=== PATIENT | male | born 1945 | race American Indian/Alaskan Native ===

== ENCOUNTER 2017-03-17 05:41 | Observation (INO) | payer BC, OTHER ==
[2017-03-17 05:53] VITALS: BMI 28.0
[2017-03-17] MEDS ORDERED: Sodium Chloride 0.9% 1,000 ML IV STA (06:16)
--- NOTE | 2017-03-17 06:28 | ED PDOC ---
Upper Extremity Pain/Injury Time Seen by Provider: 03/17/17 05:54 Chief Complaint (Nursing): Upper Extremity Problem/Injury History Per: Patient History/Exam Limitations: no limitations Onset/Duration Of Symptoms: Days, Persistent Current Symptoms Are (Timing): Still Present Quality: Sharp Severity: Severe Pain Scale Rating Of: 10 Exacerbating Factor(s): Movement Additional Complaint(s): 71 y/o man w/ pmh of HTN presents with right shoulder pain. Patient reports pain for at least 1 month, right shoulder, constant, worsened w/ movement and relieved by having right hand on the back of his head. Patient reports previous injections x2 to shoulder which the patient states provided no relief. The patient also reports XR of the shoulder about 2 weeks ago. Patient denies trauma or fall. 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 Patient denies headaches, chest pain, sOB, abdominal pain, nausea, vomiting, diarrhea, dysuria , or fever. allergies: NKDA PMD: Dr. Means ortho: Dr. Ritchie PMH: HTN PSHx: knee and wrist surgery, no adverse reactions to anesthesia FamHx: denies SOC: denies smoking, alcohol, or illegal drugs ROS: 12 points assessed and negative unless other schultz reported in HPI Past Medical History Vital Signs: Last Vital Signs Temp 98.0 F 03/17/17 05:51 Pulse 86 03/17/17 05:51 Resp 16 03/17/17 05:51 BP 139/76 03/17/17 05:51 Pulse Ox 99 03/17/17 05:51 - Medical History PMH: HTN - Surgical History Other surgeries: knee and wrist - Family History Family History: States: Unknown Family Hx - Allergies Allergies/Adverse Reactions: Allergies Allergy/AdvReac Type Severity Reaction Status Date / Time No Known Allergies Allergy Verified 03/17/17 05:50 Review of Systems ROS Statement: Except As Marked, All Systems Reviewed And Found Negative Constitutional: Negative for: Fever, Chills, Sweats Cardiovascular: Negative for: Chest Pain, Palpitations, Orthopnea, Paroxysmal Noc. Dyspnea, Edema Respiratory: Negative for: Cough, Shortness of Breath, SOB with Exertion, Pleuritic Pain, Wheezing Gastrointestinal: Negative for: Nausea, Vomiting, Abdominal Pain, Diarrhea Genitourinary Male: Negative for: Dysuria, Frequency, Hematuria Musculoskeletal: Positive for: Shoulder Pain. Negative for: Back Pain Skin: Negative for: Rash Neurological: Positive for: Weakness. Negative for: Numbness, Incoordination, Change in Speech, Confusion, Seizures, Altered Mental Status, Headache, Dizziness Physical Exam - Reviewed Nursing Documentation Reviewed: Yes Vital Signs Reviewed: Yes - Physical Exam Appears: Positive for: No Acute Distress Head Exam: Positive for: ATRAUMATIC, NORMAL INSPECTION, NORMOCEPHALIC Skin: Positive for: Normal Color, Warm, Dry Eye Exam: Positive for: Normal appearance ENT: Positive for: Normal ENT Inspection Neck: Positive for: Normal, Painless ROM, Supple Cardiovascular/Chest: Positive for: Regular Rate, Rhythm, Chest Non Tender. Negative for: Edema, JVD, Murmur, Bradycardia, Tachycardia, Irregularly Irregular Respiratory: Positive for: Normal Breath Sounds. Negative for: Decreased Breath Sounds, Accessory Muscle Use, Crackles Gastrointestinal/Abdominal: Positive for: Normal Exam, Bowel Sounds, Soft. Negative for: Tenderness, Mass, Distended, Rebound, Hernia Back: Positive for: Normal Inspection Extremity: Positive for: Tenderness, Capillary Refill, Other (right shoulder positive Speed's, Hawkin's, and Neer's tests). 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 Negative for: Motor/Sensory Deficits, Cerebellar Tests, Gait, Aphasia, Facial Droop - ECG O2 Sat by Pulse Oximetry: 99 - Progress ED Course And Treament: 71 y/o man w/ pmh of HTN presents with right shoulder pain. Most likely due to shoulder impingement vs. rotator cuff tear vs. labral tear CBC w/ diff CMP PT INR aPTT ABO-Rh EKG IVF NS @ 100 mL/Hr re-evaluate Medical Decision Making Medical Decision Makin71 y/o man w/ pmh of HTN presents with right shoulder pain. Most likely due to shoulder impingement vs. rotator cuff tear vs. labral tear CBC w/ diff CMP PT INR aPTT ABO-Rh EKG IVF NS @ 100 mL/Hr pending response from Dr. Ritchie's service re-evaluate Disposition - Clinical Impression Clinical Impression: Shoulder pain - Patient ED Disposition Is Patient to be Admitted: Transfer of Care Discussed With : Jayro Fraga Counseled Patient/Family Regarding: Studies Performed - Disposition Disposition: Transfer of Care Disposition Time: 06:40 Condition: STABLE Forms: [facility] ([place]) - POA Present On Arrival: None
[2017-03-17 07:12] LABS: EOS # 0.1 K/uL (0.0-0.7); EOS % 3.6 % (0.0-4.0); HEMATOCRIT 36.2 % (35.0-51.0); LYMPH # 1.3 K/uL (1.0-4.3); LYMPH % 41.2 % (20.0-40.0); MEAN CELL VOLUME 90.2 fl (80.0-94.0); MEAN CORPUSCULAR HEMOGLOBIN 30.4 pg (27.0-31.0); MEAN CORPUSCULAR HGB CONC 33.7 g/dL (33.0-37.0); MEAN PLATELET VOLUME 8.7 fl (7.2-11.7); MONO # 0.3 K/uL (0.0-0.8); MONO % 10.8 % (0.0-10.0); NEUT # 1.4 K/uL (1.8-7.0); NEUT % 43.4 % (50.0-75.0); NRBC % 0.2 % (0.0-0.0); RED CELL DISTRIBUTION WIDTH 14.6 % (11.5-14.5); WHITE BLOOD COUNT 3.2 K/uL (4.8-10.8)
[2017-03-17 07:20] LABS: ALB/GLOB RATIO 1.3 (1.0-2.1); ALKALINE PHOSPHATASE 57 U/L (38-126); ALT/SGPT 30 U/L (21-72); AST/SGOT 22 U/L (17-59); BILIRUBIN,TOTAL 0.7 mg/dl (0.2-1.3); BLOOD UREA NITROGEN 22 mg/dl (9-20); CALCIUM 8.7 mg/dL (8.4-10.2); CARBON DIOXIDE 30 mmol/L (22-30); CHLORIDE 103 mmol/L (98-107); GFR AFRICAN-AMERICAN > 60; GLUCOSE,RANDOM 96 mg/dL (75-110); POTASSIUM 3.7 MMOL/L (3.6-5.0); SODIUM 140 mmol/l (132-148); TOTAL PROTEIN 6.9 G/DL (6.3-8.2)
[2017-03-17 07:31] LABS: PARTIAL THROMBOPLASTIN TIME 27.8 Seconds (25.6-37.1)
--- NOTE | 2017-03-17 07:47 | ED PDOC ---
- Laboratory Results Result Diagrams: 03/17/17 06:59 03/17/17 06:59 - ECG O2 Sat by Pulse Oximetry: 99 Medical Decision Making Medical Decision Making: Time: 07:00 --Patient signed out to me by pending callback from Dr. Ritchie Scribe Attestation: Documented by Arian Young acting as a scribe for Claudette Fernandez MD. Scribe Attestation: All medical record entries made by the Scribe were at my direction and personally dictated by me. I have reviewed the chart and agree that the record accurately reflects my personal performance of the history, physical exam, medical decision making, and the department course for this patient. I have also personally directed, reviewed, and agree with the discharge instructions and disposition. Disposition - Clinical Impression Clinical Impression: Shoulder pain, Intractable pain - POA Present On Arrival: None - Disposition Disposition: Admitted as In-Patient Disposition Time: 08:08 Condition: STABLE
[2017-03-17 08:29] LABS: RBC URINE 1 /hpf (0-3); URINE BILIRUBIN NEGATIVE (NEGATIVE); URINE BLOOD NEGATIVE (NEGATIVE); URINE COLOR YELLOW (YELLOW); URINE GLUCOSE (UA) NEG (Normal); URINE KETONE NEGATIVE (NEGATIVE); URINE LEUKOCYTE ESTERASE NEG Leu/uL (Negative); URINE PROTEIN NEGATIVE (NEGATIVE); URINE UROBILINOGEN 0.2-1.0 mg/dL (0.2-1.0); WBC URINE < 1 /hpf (0-5)
--- NOTE | 2017-03-17 09:08 | CP.PCM.HP ---
<Michael Mckeon - Last Filed: 03/17/17 09:30> History of Present Illness - History of Present Illness History of Present Illness: 71 year old male with PMHx of hypertension seen in the ED complaining of severe right shoulder pain. Patient is AAO x 3, seen resting in bed. Patient states that the pain in his arm has been present for many months and has been increasingly painful over the last few weeks. 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 He states that he has received two injections into the shoulder over the last few months without experiencing any relief. Patient states that he has had a knee surgery and a wrist surgery in the past. He denies any adverse affects to the anesthesia at that time. He states that he has been NPO since before midnight last night. He denies use of any tobacco products, alcohol or illicit drugs. Patient denies any further health problems at this time. Present on Admission - Present on Admission Any Indicators Present on Admission: No Review of Systems - Review of Systems Review of Systems: ROS unremarkable outside of HPI Past Patient History - Past Medical History & Family History Past Medical History?: Yes - Past Social History Smoking Status: Never Smoked - CARDIAC Hx Cardia Arrhythmia: Yes Hx Hypertension: Yes - PULMONARY Hx Respiratory Disorders: No - NEUROLOGICAL Hx Neurological Disorder: No - HEENT Hx HEENT Problems: No - RENAL Hx Chronic Kidney Disease: No Hx Kidney Stones: No - ENDOCRINE/METABOLIC Hx Endocrine Disorders: No - HEMATOLOGICAL/ONCOLOGICAL Hx Blood Disorders: No - INTEGUMENTARY Hx Dermatological Problems: No - MUSCULOSKELETAL/RHEUMATOLOGICAL Hx Musculoskeletal Disorders: No - GASTROINTESTINAL Hx Gastrointestinal Disorders: No - GENITOURINARY/GYNECOLOGICAL Hx Genitourinary Disorders: No - PSYCHIATRIC Hx Psychophysiologic Disorder: No Hx Substance Use: No - SURGICAL HISTORY Hx Surgeries: Yes Other/Comment: rt knee surgery, rt wrist surgery - ANESTHESIA Hx Anesthesia: Yes Hx Anesthesia Reactions: No Meds Allergies/Adverse Reactions: Allergies Allergy/AdvReac Type Severity Reaction Status Date / Time No Known Allergies Allergy Verified 03/17/17 05:50 Physical Exam - Constitutional Appears: Well, Non-toxic, No Acute Distress - Head Exam Head Exam: NORMAL INSPECTION, NORMOCEPHALIC - Eye Exam Eye Exam: EOMI, Normal appearance, PERRL Pupil Exam: NORMAL ACCOMODATION, PERRL - ENT Exam ENT Exam: Mucous Membranes Moist - Neck Exam Neck exam: Positive for: Normal Inspection. Negative for: Tenderness - Respiratory Exam Respiratory Exam: NORMAL BREATHING PATTERN - Cardiovascular Exam Cardiovascular Exam: Irregular Rhythm - GI/Abdominal Exam GI & Abdominal Exam: Normal Bowel Sounds. absent: Distended, Firm - Rectal Exam Rectal Exam: Deferred - Extremities Exam Additional comments: Pain with ROM of right shoulder, most severe with extension - Neurological Exam Neurological exam: Alert, Oriented x3 - Psychiatric Exam Psychiatric exam: Normal Affect, Normal Mood - Skin Skin Exam: Intact, Normal Color, Warm Results - Vital Signs Recent Vital Signs: Last Vital Signs Temp 97.7 F 03/17/17 08:08 Pulse 80 03/17/17 08:28 Resp 17 03/17/17 08:28 BP 135/70 03/17/17 08:28 Pulse Ox 96 03/17/17 08:28 - Labs Result Diagrams: 03/17/17 06:59 03/17/17 06:59 Labs: Laboratory Results - last 24 hr 03/17/17 03/17/17 03/17/17 06:59 06:59 06:59 WBC 3.2 L RBC 4.02 L Hgb 12.2 Hct 36.2 MCV 90.2 MCH 30.4 MCHC 33.7 RDW 14.6 H Plt Count 236 MPV 8.7 Neut % (Auto) 43.4 L Lymph % (Auto) 41.2 H [place] % (Auto) 10.8 H Eos % (Auto) 3.6 Baso % (Auto) 1.0 Neut # 1.4 L Lymph # 1.3 [place] # 0.3 Eos # 0.1 Baso # 0.0 PT 12.4 INR 1.1 APTT 27.8 Sodium 140 Potassium 3.7 Chloride 103 Carbon Dioxide 30 Anion Gap 11 BUN 22 H Creatinine 1.1 Est GFR ( Amer) > 60 Est GFR (Non-Af Amer) > 60 Random Glucose 96 Calcium 8.7 Total Bilirubin 0.7 AST 22 ALT 30 Alkaline Phosphatase 57 Total Protein 6.9 Albumin 3.9 Globulin 3.0 Albumin/Globulin Ratio 1.3 Urine Color Urine Clarity Urine pH Ur Specific [place] Urine Protein Urine Glucose (UA) Urine Ketones Urine Blood Urine Nitrate Urine Bilirubin Urine Urobilinogen Ur Leukocyte Esterase Urine RBC (Auto) Urine Microscopic WBC BBK History Checked 03/17/17 03/17/17 06:59 08:06 WBC RBC Hgb Hct MCV MCH MCHC RDW Plt Count MPV Neut % (Auto) Lymph % (Auto) [place] % (Auto) Eos % (Auto) Baso % (Auto) Neut # Lymph # [place] # Eos # Baso # PT INR APTT Sodium Potassium Chloride Carbon Dioxide Anion Gap BUN Creatinine Est GFR ( Amer) Est GFR (Non-Af Amer) Random Glucose Calcium Total Bilirubin AST ALT Alkaline Phosphatase Total Protein Albumin Globulin Albumin/Globulin Ratio Urine Color Yellow Urine Clarity Slighty-cloudy Urine pH 6.0 Ur Specific [place] 1.018 Urine Protein Negative Urine Glucose (UA) Neg Urine Ketones Negative Urine Blood Negative Urine Nitrate Negative Urine Bilirubin Negative Urine Urobilinogen 0.2-1.0 Ur Leukocyte Esterase Neg Urine RBC (Auto) 1 Urine Microscopic WBC < 1 BBK History Checked No verified bt Assessment & Plan - Assessment and Plan (Free Text) Assessment: 71 year old male seen in ED for worsening right shoulder pain Plan: 1. Right shoulder pain Consult placed for ortho: Dr. Ritchie Shoulder xray taken, read pending; r/o rotator cuff injury, arthritic changes , acute or chronic injury IV morphine ordered: 2 mg q6h prn pain 8-10 2. Hypertension BP well controlled at 137/66 Continue at home medications: Lisinopril, Doxazosin, Torsemide 3. PVCs EKG ordered: PVC's noted Cardiology consult placed: Dr. Marie 4. DVT Prophylaxis SCDs ordered - Date & Time Date: 03/17/17 Time: 09:12 <Mehreen Gonzalez - Last Filed: 03/17/17 09:40> Results - Vital Signs Recent Vital Signs: Last Vital Signs Temp 97.7 F 03/17/17 08:08 Pulse 80 03/17/17 08:28 Resp 17 03/17/17 08:28 BP 135/70 03/17/17 08:28 Pulse Ox 96 03/17/17 08:28 - Labs Result Diagrams: 03/17/17 06:59 03/17/17 06:59 Labs: Laboratory Results - last 24 hr 03/17/17 03/17/17 03/17/17 06:59 06:59 06:59 WBC 3.2 L RBC 4.02 L Hgb 12.2 Hct 36.2 MCV 90.2 MCH 30.4 MCHC 33.7 RDW 14.6 H Plt Count 236 MPV 8.7 Neut % (Auto) 43.4 L Lymph % (Auto) 41.2 H [place] % (Auto) 10.8 H Eos % (Auto) 3.6 Baso % (Auto) 1.0 Neut # 1.4 L Lymph # 1.3 [place] # 0.3 Eos # 0.1 Baso # 0.0 PT 12.4 INR 1.1 APTT 27.8 Sodium 140 Potassium 3.7 Chloride 103 Carbon Dioxide 30 Anion Gap 11 BUN 22 H Creatinine 1.1 Est GFR ( Amer) > 60 Est GFR (Non-Af Amer) > 60 Random Glucose 96 Calcium 8.7 Total Bilirubin 0.7 AST 22 ALT 30 Alkaline Phosphatase 57 Total Protein 6.9 Albumin 3.9 Globulin 3.0 Albumin/Globulin Ratio 1.3 Urine Color Urine Clarity Urine pH Ur Specific [place] Urine Protein Urine Glucose (UA) Urine Ketones Urine Blood Urine Nitrate Urine Bilirubin Urine Urobilinogen Ur Leukocyte Esterase Urine RBC (Auto) Urine Microscopic WBC Blood Type Antibody Screen BBK History Checked 03/17/17 03/17/17 06:59 08:06 WBC RBC Hgb Hct MCV MCH MCHC RDW Plt Count MPV Neut % (Auto) Lymph % (Auto) [place] % (Auto) Eos % (Auto) Baso % (Auto) Neut # Lymph # [place] # Eos # Baso # PT INR APTT Sodium Potassium Chloride Carbon Dioxide Anion Gap BUN Creatinine Est GFR ( Amer) Est GFR (Non-Af Amer) Random Glucose Calcium Total Bilirubin AST ALT Alkaline Phosphatase Total Protein Albumin Globulin Albumin/Globulin Ratio Urine Color Yellow Urine Clarity Slighty-cloudy Urine pH 6.0 Ur Specific [place] 1.018 Urine Protein Negative Urine Glucose (UA) Neg Urine Ketones Negative Urine Blood Negative Urine Nitrate Negative Urine Bilirubin Negative Urine Urobilinogen 0.2-1.0 Ur Leukocyte Esterase Neg Urine RBC (Auto) 1 Urine Microscopic WBC < 1 Blood Type B POSITIVE Antibody Screen Negative BBK History Checked No verified bt Attending/Attestation - Attestation I have personally seen and examined this patient.: Yes I have fully participated in the care of the patient.: Yes I have reviewed all pertinent clinical information: Yes Notes (Text): Severe Right Shoulder Pain ? etiology - OA , r/p Rotator cuff tear - Pt takes pain meds daily, had 2 joint injections in the past without relief - Pain mgt , IV Morphine, PO Percocet - Ortho consult: Dr Ritchie - may need CT / MRI of the shoulder Irregular Heart rhythm ? PVCs - Cardio consult - discussed case with Dr Marei
--- NOTE | 2017-03-17 09:31 | CP.PCM.CON ---
History of Present Illness - History of Present Illness History of Present Illness: THE PATIENT IS A 71 YEAR OLD MALE ADMITTED THROUGH THE ER THIS MORNING FOR RIGHT SHOULDER SURGERY. HE CLAIMS THAT THE RIGHT SHOULDER PAIN HAS BEEN GETTING MUCH WORSE AND MUCH MORE PAINFUL OVER THE PAST FEW MONTHS AND HE HSD FAILED CONSERVATIVE TREATMENT. CARDIOLOGY WAS ASKED TO SEE HIM PRE-OP AND FOLLW HIM ON THIS ADMISSION. HE STATES THAT HE HAS HYPERTENSION THAT IS CONTROLLED WELL BY MEDICATIONS. HE ALSO STATES THAT HE HAS A HEART MURMUR AND WAS REFERRED TO A MAIL SERVICE COORDINATOR ABOUT TWO YEARS AGO AND HE HAD AN ECHOCARDIOGRAM AND WAS TOLD THAT IS WASN'T ANYTHING SERIOUS. HE DENIES CHEST PAIN, PALPITATIONS, SOB OR A CAD HISTORY. Past Patient History - Past Medical History & Family History Past Medical History?: Yes - Past Social History Smoking Status: Never Smoked - CARDIAC Hx Cardia Arrhythmia: Yes Hx Hypertension: Yes - PULMONARY Hx Respiratory Disorders: No - NEUROLOGICAL Hx Neurological Disorder: No - HEENT Hx HEENT Problems: No - RENAL Hx Chronic Kidney Disease: No Hx Kidney Stones: No - ENDOCRINE/METABOLIC Hx Endocrine Disorders: No - HEMATOLOGICAL/ONCOLOGICAL Hx Blood Disorders: No - INTEGUMENTARY Hx Dermatological Problems: No - MUSCULOSKELETAL/RHEUMATOLOGICAL Hx Musculoskeletal Disorders: No - GASTROINTESTINAL Hx Gastrointestinal Disorders: No - GENITOURINARY/GYNECOLOGICAL Hx Genitourinary Disorders: No - PSYCHIATRIC Hx Psychophysiologic Disorder: No Hx Substance Use: No - SURGICAL HISTORY Hx Surgeries: Yes Other/Comment: rt knee surgery, rt wrist surgery - ANESTHESIA Hx Anesthesia: Yes Hx Anesthesia Reactions: No Meds Allergies/Adverse Reactions: Allergies Allergy/AdvReac Type Severity Reaction Status Date / Time No Known Allergies Allergy Verified 03/17/17 05:50 - Medications Medications: Current Medications Sodium Chloride (Sodium Chloride 0.9%) 1,000 mls @ 100 mls/hr IV .Q10H STA Stop: 03/17/17 16:15 Last Admin: 03/17/17 07:39 Dose: 100 mls/hr Morphine Sulfate (Morphine) 2 mg IVP Q6 PRN PRN Reason: Pain, severe (8-10) Physical Exam - Respiratory Exam Respiratory Exam: Clear to Auscultation Bilateral - Cardiovascular Exam Cardiovascular Exam: Irregular Rhythm, +S1, +S2, Systolic Murmur - Extremities Exam Additional comments: NO LE EDEMA - Additional Findings Additional findings: EKG NSR, SINGLE PVC'S CXR CLEAR Results - Vital Signs Recent Vital Signs: Last Vital Signs Temp 97.7 F 03/17/17 08:08 Pulse 80 03/17/17 08:28 Resp 17 03/17/17 08:28 BP 135/70 03/17/17 08:28 Pulse Ox 96 03/17/17 08:28 - Labs Result Diagrams: 03/17/17 06:59 03/17/17 06:59 Labs: Laboratory Results - last 24 hr 03/17/17 03/17/17 03/17/17 06:59 06:59 06:59 WBC 3.2 L RBC 4.02 L Hgb 12.2 Hct 36.2 MCV 90.2 MCH 30.4 MCHC 33.7 RDW 14.6 H Plt Count 236 MPV 8.7 Neut % (Auto) 43.4 L Lymph % (Auto) 41.2 H [place] % (Auto) 10.8 H Eos % (Auto) 3.6 Baso % (Auto) 1.0 Neut # 1.4 L Lymph # 1.3 [place] # 0.3 Eos # 0.1 Baso # 0.0 PT 12.4 INR 1.1 APTT 27.8 Sodium 140 Potassium 3.7 Chloride 103 Carbon Dioxide 30 Anion Gap 11 BUN 22 H Creatinine 1.1 Est GFR ( Amer) > 60 Est GFR (Non-Af Amer) > 60 Random Glucose 96 Calcium 8.7 Total Bilirubin 0.7 AST 22 ALT 30 Alkaline Phosphatase 57 Total Protein 6.9 Albumin 3.9 Globulin 3.0 Albumin/Globulin Ratio 1.3 Urine Color Urine Clarity Urine pH Ur Specific [place] Urine Protein Urine Glucose (UA) Urine Ketones Urine Blood Urine Nitrate Urine Bilirubin Urine Urobilinogen Ur Leukocyte Esterase Urine RBC (Auto) Urine Microscopic WBC Blood Type Antibody Screen BBK History Checked 03/17/17 03/17/17 06:59 08:06 WBC RBC Hgb Hct MCV MCH MCHC RDW Plt Count MPV Neut % (Auto) Lymph % (Auto) [place] % (Auto) Eos % (Auto) Baso % (Auto) Neut # Lymph # [place] # Eos # Baso # PT INR APTT Sodium Potassium Chloride Carbon Dioxide Anion Gap BUN Creatinine Est GFR ( Amer) Est GFR (Non-Af Amer) Random Glucose Calcium Total Bilirubin AST ALT Alkaline Phosphatase Total Protein Albumin Globulin Albumin/Globulin Ratio Urine Color Yellow Urine Clarity Slighty-cloudy Urine pH 6.0 Ur Specific [place] 1.018 Urine Protein Negative Urine Glucose (UA) Neg Urine Ketones Negative Urine Blood Negative Urine Nitrate Negative Urine Bilirubin Negative Urine Urobilinogen 0.2-1.0 Ur Leukocyte Esterase Neg Urine RBC (Auto) 1 Urine Microscopic WBC < 1 Blood Type B POSITIVE Antibody Screen Negative BBK History Checked No verified bt Assessment & Plan - Assessment and Plan (Free Text) Assessment: RIGHT SHOULDER PROBLEM HYPERTENSION SINGLE PVC'S HEART MURMUR Plan: THE PATIENT IS CLEARED FOR SURGERY
--- NOTE | 2017-03-17 12:06 | RAD ---
HISTORY: Medical clearance COMPARISON: No prior. TECHNIQUE: Chest PA and lateral FINDINGS: LUNGS: No active pulmonary disease. PLEURA: No significant pleural effusion identified. No pneumothorax apparent. CARDIOVASCULAR: No radiographic findings to suggest acute or significant cardiovascular disease. OSSEOUS STRUCTURES: No significant abnormalities. VISUALIZED UPPER ABDOMEN: Normal. OTHER FINDINGS: None. IMPRESSION: No active disease.
[2017-03-17] MEDS ORDERED: Lidocaine 1% Inj (20ml) ONE (13:10)
[2017-03-17] MEDS ORDERED: MethylPREDNISolone Depo 40 mg/ml Inj ONE (13:10)
[2017-03-17] MEDS ORDERED: Bacitracin Ointment 30 GM TUBE ONE (13:11)
[2017-03-17] MEDS ORDERED: Bupivacaine 0.5% Inj(30mL) ONE (13:11)
[2017-03-17] MEDS ORDERED: Thrombin Topical 5,000 IU Spray Kit ONE (13:11)
[2017-03-17] MEDS ORDERED: ceFAZolin IV 1 gm in Dextrose 2 GM/100 ML BAG IVPB ONE (13:11)
[2017-03-17] MEDS ORDERED: Absorbable Gelatin Sponge Size 100 ONE (13:11)
--- NOTE | 2017-03-17 13:40 | CARD ---
APPROVED REPORT EKG Measurement Heart [id number] MD 200P37 [id number] <Conclusion> Sinus rhythm with frequent premature ventricular complexes Otherwise normal ECG
--- NOTE | 2017-03-17 13:40 | CARD ---
APPROVED REPORT EKG Measurement Heart [id number] [place] 204P43 [id number] <Conclusion> Normal sinus rhythm Normal ECG
--- NOTE | 2017-03-17 13:44 | CARD ---
APPROVED REPORT EKG Measurement Heart [id number] NE 208P50 [id number] <Conclusion> Sinus rhythm with frequent premature ventricular complexes Otherwise normal ECG
--- NOTE | 2017-03-17 14:55 | RAD ---
PROCEDURE: Radiographs of the Right Shoulder HISTORY: R shoulder Pain. No history of recent/ related trauma provided COMPARISON: No prior. FINDINGS: BONES: Normal. No fracture. JOINTS: Normal. Glenohumeral and acromioclavicular joints preserved. No osteoarthritis. SOFT TISSUES: Normal. OTHER FINDINGS: None. IMPRESSION: No significant or acute findings to account for/ related to the clinical presentation.
[2017-03-17] MEDS ORDERED: Ropivacaine 0.5% 30ML IV ONE (15:41)
[2017-03-17] MEDS ORDERED: Rocuronium 10 mg/ml (5 ml) ONE ×2 (15:47→18:16)
[2017-03-17] MEDS ORDERED: Propofol 10 mg/ml Inj (20 ML) ONE (15:47)
[2017-03-17] MEDS ORDERED: Succinylcholine 200 mg/10 ml Inj IV ONE (15:47)
[2017-03-17] MEDS ORDERED: Phenylephrine 10 mg/ml Inj ONE (15:48)
[2017-03-17] MEDS ORDERED: Etomidate 20 mg/10ml Inj IV ONE (15:48)
[2017-03-17] MEDS ORDERED: Midazolam 2 MG/2 ML VIAL ONE (15:53)
[2017-03-17] MEDS ORDERED: Lactated Ringer's 1,000 ML IV ONE ×2 (15:58→17:00)
[2017-03-17] MEDS ORDERED: Sevoflurane - Inhalation Anesthetic Liq (250 ml) ONE (16:21)
[2017-03-17] MEDS ORDERED: ePHEDrine 50 mg/ml Inj ONE (16:37)
--- NOTE | 2017-03-17 17:02 | RAD ---
PROCEDURE: Radiographs of the Right Shoulder HISTORY: PRE-OP XRAY COMPARISON: No prior. FINDINGS: BONES: No acute fracture. JOINTS: Preserved glenohumeral relationship. Mild acromioclavicular degenerative change. SOFT TISSUES: Normal. OTHER FINDINGS: None. IMPRESSION: No acute findings related to/accounting for the clinical presentation.Mild/ moderate AC degenerative change
--- NOTE | 2017-03-17 17:07 | PCM.ANESB1 ---
Interscalene Block - Brachial Plexus Date of Procedure: 03/17/17 Anesthesiologist: Clement Pre-Procedure Diagnosis: Internal deragement right shoulder Post-Procedure Diagnosis: same Procedure Performed: Interscalene Block of Brachial Plexus Right - Procedure Interscalene Block of Brachial Plexus: This procedure was explained to the patient that it is for post-operative pain management. Consent was obtained after a thorough discussion with the patient regarding the benefits and possible complications of local anesthetic block of the Brachial Plexus at the Interscalene area. The patient was brought to the Operating Room and standard monitors were applied. Time out was held with the circulating nurse to confirm the correct surgery and appropriate block. After applying Oxygen by nasal cannula and administering IV Sedation, the patient's head was gently rotated away from the __right____operative shoulder and the anterior scalene groove was carefully palpated. The ultrasound transducer was then applied to the skin in the transverse plane and the brachial plexus was visualized lateral to the carotid artery and in between the anterior and middle scalene muscles. After identification,the anterior lateral portion of the neck was prepped with Chloraprep and Lidocaine 2% was injected subcutaneously for topical analgesia. At this point, a # 22 gauge Stimuplex 2 inches insulated needle was inserted into the interscalene groove and directed in a caudal and midline direction. The needle was inserted lateral to the ultrasound transducer in-plane towards the brachial plexus in a [id number] direction. Needle advancement was performed carefully under direct ultrasound visualization. Nerve stimulator was used and twitched of the affected extremity including the hand brachialis muscles, biceps and the deltoid was obtained at a current of __0.4___MA. After repeated negative aspiration,__2___cc of_0.5____,___ropivicaine were injected and this was followed with __8___cc of __0.5___% __ropivicaine and 20cc 0.5% bupivicaine with 1:200,000 epinephrine . Under ultrasound guidance the local anesthetics were observed surrounding the roots of the brachial plexus. The needle was removed intact. The patient had stable vital signs, was conscious and in no apparent distress. The patient tolerated the interscalene block of the bracheal plexus well with stable vital signs and was prepared for subsequent surgery.
[2017-03-17] MEDS ORDERED: Lidocaine 1% Inj (20ml) IJ ONE (17:12)
[2017-03-17] MEDS ORDERED: Neostigmine Methylsulfate 2 MG/2 ML ML IV ONE (17:47)
[2017-03-17] MEDS ORDERED: Bacitracin OINT 15GM TOP ONE (18:45)
--- NOTE | 2017-03-17 18:52 | PCM.SURG1 ---
Surgeon's Initial Post Op Note - Surgeon's Notes Surgeon: Chau Plisse Machine Operator Helper: ANNAMARIE Titus Type of Anesthesia: General Endo, Block Regional Anesthesia Administered By: DR Osorio Field/DR velazquez Pre-Operative Diagnosis: painful L shoulder (so severe pt presented to the ER) Operative Findings: Slap tear Right shoulder (glenoid labrum). Os acromionale. biceps tendon avulsion. chondral fx glenoid. synovirtis R shoulder. calcific bursitis R shoulder Post-Operative Diagnosis: as above Operation Performed: arthroscopic repair slap lesion. arthroscopic biceps tenodesis. arthroscopic partial acromionectomy(excision os acromionale). \ arthroscopic partial distal claviculectomy. arthroscopic debridemnt glenohumeral joint. arthroscopic excision calcific bursitis/lysis of adhesions Specimen/Specimens Removed: bone cartilage/os acromionale Estimated Blood Loss: EBL {In ML}: 25 Date of Surgery/Procedure: 03/17/17 Time of Surgery/Procedure: 17:10 (time in room/anesthesia indcution time 15:58)
[2017-03-17] MEDS ORDERED: HYDROmorphone 0.5 mg/0.5 ml ISec IVP PRN (19:00)
[2017-03-17] MEDS ORDERED: Lactated Ringer's 1,000 ML IV SCH (19:00)
[2017-03-17 20:57] VITALS: TEMP 97.6
[2017-03-17 22:36] VITALS: BP 130/72; PULSE 81; RESP 20
--- NOTE | 2017-03-18 14:14 | OP ---
PROCEDURE DATE: 03/17/2017 PREOPERATIVE DIAGNOSIS: Severely painful right shoulder. POSTOPERATIVE DIAGNOSES: 1. Superior labral tear from anterior to posterior lesion, type 2 extending anterior to posteriorly to the root of the biceps tendon. 2. Biceps tendon avulsion from the superior aspect of the glenoid. 3. Acromioclavicular joint arthropathy. 4. Os acromiale. 5. Chondral damage glenoid with glenohumeral synovitis, severe. 6. Calcific bursitis, subacromial space. PROCEDURES: 1. Arthroscopic labral repair. 2. Arthroscopic biceps tenodesis. 3. Arthroscopic partial acromionectomy, excision os acromiale. 4. Arthroscopic partial distal claviculectomy. 5. Arthroscopic extensive debridement of the glenohumeral joint. 6. Arthroscopic debridement of the subacromial space, excision of calcium. SURGEON: Troy Ritchie MD. RAIL CAR WELDER: Elizabeth Keene, certified registered nursing certified surgical first assistant. TYPE OF ANESTHESIA: General and regional anesthesia. COMPLICATIONS: None. DRAINS: None. OPERATIVE INDICATIONS: Brayan Milner is a gentleman who presented to the emergency room at [facility] with severe pain and restricted range of motion of the right shoulder. The patient have been treating this conservatively over the past 2 to 3 months ago. It got to the point where he awoken, he cannot move the shoulder, severe pain, unable to tolerate. The patient presented to the emergency room because he knew I was a staff at this hospital and is admitted as an emergency. Stabilization is accomplished by the hospitalist. Pros, cons, risks, and benefits of surgical approach were discussed. Possibility of surgical arthroscopy and the possibility of later joint arthroplasty was discussed. The possibility of mechanical failure, infection, thromboembolic disease, secondary or tertiary surgery was discussed. The concept that later, open procedure may be accomplished, later arthroplasty may be necessary. DESCRIPTION OF PROCEDURE: After having obtained informed consent with the patient and his ; after having identified side, site, and procedure, and a critical pause/time-out; after the satisfactory induction of the anesthetic, the patient was identified as Brayan Milner in the modified Andersen chair position, the right upper extremity was prepped and free draped in the usual fashion for upper extremity surgery. The topographic anatomy of the shoulder was marked. After the satisfactory induction of regional and general anesthesia by Dr. Evans and Dr. Vaughan; after having identified side, site, and procedure, and a critical pause/time-out; after the satisfactory induction of the anesthetic, and after having obtained informed consent; after sterilely prepping and draping, the topographic anatomy of the shoulder was marked, the spine of the scapula, lateral aspect of the acromion, and coracoid process. The joint was infiltrated with 10 mL 1% lidocaine without epinephrine, using #11 blade, followed by spreading, followed by introduction of blunt trocar. With the arthroscope posteriorly, there was found to be dense synovitis with a tear of the glenoid labrum, severe with separation and fraying extending to the biceps tendon, which was unstable and avulsed. Triangulation was accomplished using #18-gauge spinal needle, followed by #11 blade, followed by spreading, followed by introduction of a blunt trocar. Posterolateral portal was accomplished using #18 spinal needle, followed by #11 blade, followed by spreading with the arthroscope posteriorly. An incision was accomplished anteriorly, taking great care to stay lateral to the coracoid process. With the arthroscope posteriorly, using #11 blade, followed by spreading, introduction of the Wissinger teja, the cannula was placed anteriorly from posterolateral portal using #18 spinal needle, followed by #11 blade, followed by spreading. With the arthroscope posteriorly, the cannula was placed anteriorly and a careful, but extensive debridement of the glenohumeral joint was accomplished using the arthroscopic shaver. The chondroplasty was accomplished at the central aspect since there was evidence of chondral damage at the central aspect of the glenoid. With the arthroscope posteriorly, the inner free edge of the labrum was smoothed using the arthroscopic shaver and the separation is clearly defined. The anterior glenoid is prepared using the rasp and the periosteum elevator. Please refer to the video photographs. With the arthroscope posteriorly, the lasso was used to deploy a nitinol wire in the joint, using the BirdBeak, it is moved out posteriorly and this having been accomplished, with the arthroscope posteriorly, the cannula having been placed anteriorly, the fiber braid was placed around the tear. Both limbs were brought out anteriorly. This having been accomplished at approximately the 2 o'clock position, drilling was accomplished. The PushLock anchor is loaded and the PushLock anchor is introduced and the repair is found to be stable. At this point in time, attention was turned to the biceps tendon at the root of the biceps tendon using the 45 degrees lasso, the fiber braid is again deployed. The nitinol wire is brought out posteriorly. The fiber braid is loaded, brought out anteriorly, and the biceps tenodesis was accomplished at approximately the 12:30 position using the drill followed by the PushLock anchor. This having been accomplished, a third anchor was placed at approximately the 3 o'clock position in the area of the separation of the glenoid. This having been accomplished, the nitinol wire was brought out posteriorly, the shanta are brought out anteriorly, the PushLock anchor was loaded. Drilling was accomplished and was brought at the 3 o'clock position of the glenoid. This having been accomplished, the glenoid is positioned. This having been accomplished with the arthroscope posteriorly, the anchors having accomplished, repair of the labrum and repair of the long head of the biceps. Extensive debridement of the glenohumeral joint was accomplished. With the arthroscope posteriorly, partial synovectomy was completed. The arthroscope was placed in the subacromial space. With the upper extremity in dependency, triangulation was accomplished using an #18-gauge spinal needle, followed by spreading, followed by introduction of a blunt trocar. With the arthroscope posteriorly, extensive debridement of the subacromial space is accomplished. There was found to be evidence of calcium in the bursa and using a combination of the arthroscopic shaver and the ArthroCare wand, an extensive debridement of the subacromial space was accomplished. At this point in time, there was found to be evidence of AC joint arthropathy with compromise of the AC joint as well as evidence of a large os acromiale. With the arthroscope posteriorly and having accomplished another portal laterally, using #18 spinal needle, followed by spreading, followed by instruction of blunt trocar. The extensive debridement of the subacromial space was accomplished and at this point in time, dissection of the os acromiale, which was very tedious, is begun. All soft tissue connections were removed from the os acromiale and this took approximately 15 to 20 minutes. With the arthroscope now posteriorly, with the Lizabeth wand both anteriorly, laterally, and posterolaterally, the attachments to the acromion were divided. This having been accomplished grasping with the Renee and extending the incision, the os acromiale was removed. Extensive debridement of the subacromial space was accomplished with lysis of adhesions. Hemostasis was controlled with the wand. At this point in time, a partial distal claviculectomy is accomplished to the distal aspect of the clavicle to include the articular cartilage. The wound was thoroughly irrigated. There was no evidence of tear of the rotator cuff. Closures in layers with interrupted Vicryl and nylon. Intra-articular injection is deferred. The patient had undergone a block. Shoulder immobilizers were applied. Closures in layers with interrupted Vicryl and nylon. The operation could not have been completed without the assistance of certified registered nursing certified surgical first assistant, Elizabeth Keene. Again, the patient had presented as an emergency through the emergency room since he was unable to control the pain. Troy Ritchie MD
[2017-03-18 15:13] VITALS: O2SAT 99
== END 2017-03-17 23:40 | disposition home or self-care (01) ==
LOC: H.ER 05:41 → H.ERHOLD 08:08 → H.MEDSURG1 10:19
PROVIDERS: ADMIT Internal Medicine; ATTEND Internal Medicine
DX: S43.431A Superior glenoid labrum lesion of right shoulder, initial encounter (principal); X58.XXXA Exposure to other specified factors, initial encounter; Y93.9 Activity, unspecified; S46.291A Other injury of muscle, fascia and tendon of other parts of biceps, right arm, initial encounter; M65.811 Other synovitis and tenosynovitis, right shoulder; M75.51 Bursitis of right shoulder; S42.141A Displaced fracture of glenoid cavity of scapula, right shoulder, initial encounter for closed fracture; I10 Essential (primary) hypertension; I49.3 Ventricular premature depolarization; R01.1 Cardiac murmur, unspecified
CPT/HCPCS: 29807; 29823; 29824; 29826; 29828; 71020; 73020; 73030; 80053; 81003; 85025; 85610; 85730; 86850; 86900; 88304; 93005; 99285; G0378; J0330; J0690; J2001; J2250; J2370; J2704; J2710; J3010; J7030; J7040; J7120